=== PATIENT | female | born 1995 | race African-American/Black ===

== ENCOUNTER 2024-12-15 12:45 | Emergency (ER) | payer OTHER ==
[~2024-12-15] VITALS: Ht 167.6 cm; Wt 96.6 kg
[2024-12-15] MEDS ORDERED: RIZA5TAB2 PO (12:58)
[2024-12-15 16:37] LABS: BASO % 0.4 % (0.0-1.0); HEMATOCRIT 41.2 % (36.0-47.0); HEMOGLOBIN 13.8 g/dl (12.0-15.5); LYMPH # 1.1 10^3/uL (1.5-5.0); LYMPH % 12.5 % (24.0-44.0); MEAN CORPUSCULAR HEMOGLOBIN 27.8 pg (27.0-33.0); MEAN CORPUSCULAR HGB CONC 33.5 g/dl (32.0-36.5); MEAN CORPUSCULAR VOLUME 82.9 fl (80.0-96.0); MONO # 0.4 10^3/uL (0.0-0.8); MONO % 5.1 % (2.0-8.0); NEUTROPHILS % 81.9 % (36.0-66.0); PLATELET COUNT, AUTOMATED 250 10^3/uL (150-450); RED BLOOD COUNT 4.97 10^6/uL (4.00-5.40); WHITE BLOOD COUNT 8.6 10^3/uL (4.0-10.0)
[2024-12-15 17:04] LABS: LIPASE 26 U/L (12-53)
[2024-12-15 17:06] LABS: ALBUMIN 4.2 G/DL (3.2-5.2); ALKALINE PHOSPHATASE 54 U/L (35-104); ALT/SGPT 13 U/L (7.0-40); AST/SGOT 14 U/L (<34); BILIRUBIN,DIRECT 0.2 MG/DL (<0.4); BILIRUBIN,TOTAL 0.5 MG/DL (0.3-1.2); TOTAL PROTEIN 7.6 G/DL (5.7-8.2)
[2024-12-15] MEDS: NS 500 ML IV ONE (17:40)
[2024-12-15] MEDS: KETOROLAC 30 MG/ML 1ML VIAL IV ONE (17:58)
[2024-12-15] MEDS: METOCLOPRAMIDE INJ 10MG/2ML VIAL IV ONE (17:58)
[2024-12-15] MEDS: diphenhydrAMINE 50MG/ML VIAL IV ONE (17:59)
[2024-12-15 18:42] LABS: HCG, SERUM QUANTITATIVE < 2.6 MIU/ML (<4.2)
[2024-12-15 19:39] VITALS: BP 108/70; TEMP 97; O2SAT 98
== END 2024-12-15 19:42 | disposition home or self-care (01) ==
LOC: M ED 12:45
DX: G43.909 Migraine, unspecified, not intractable, without status migrainosus (principal); Z79.899 Other long term (current) drug therapy
CPT/HCPCS: 80047; 80076; 83690; 84702; 85025; 87486; 87581; 87633; 87798; 96374; 96375; 99284; J1200; J1885; J2765